=== PATIENT | female | born 1965 | race Caucasian/White ===

== ENCOUNTER 2018-09-14 07:36 | Emergency (ER) | payer BC ==
--- NOTE | 2018-09-14 08:25 | EDM.PDOC ---
ED HPI GENERAL MEDICAL PROBLEM - General Chief Complaint: Abdominal Pain Stated Complaint: ADB PAIN Time Seen by Provider: 09/14/18 08:24 Source of Information: Reports: Patient History Limitations: Reports: No Limitations - History of Present Illness INITIAL COMMENTS - FREE TEXT/NARRATIVE: 53-year-old female with onset of upper quadrant abdominal pain for approximately 9 PM last night while she was lying in bed. It is a sharp pain. It has been waxing and waning through the night. She reports nausea but no vomiting. The pain is worse with palpation. It does not radiate. The pain was an 8/10 when she arrived and is now a 4/10. She has had no fevers or chills. She 's had no diarrhea. She reports she has had this pain in the past but it always seems to go away. It does seem to be relieved at times using antacids. She has had no fevers or chills with this pain. She has never sought medical evaluation for this discomfort in the past. There is no chest pain. There is no shortness of breath. There are no other associated signs or symptoms. There are no other modifying factors. Onset: Other (Last night at 9 PM) Duration: Constant, Waxing/Waning Location: Reports: Abdomen (Upper quadrant) Quality: Reports: Burning Severity: Moderate Improves with: Reports: None Worsens with: Reports: Other (Palpation) Context: Reports: Other (As above) Associated Symptoms: Reports: Nausea/Vomiting Treatments GARMENT TAG STRINGER: Reports: Other (see below) (Zantac at 4 AM) Upper abdominal Pain Score (Numeric/FACES): 8 - Related Data Allergies Allergy/AdvReac Type Severity Reaction Status Date / Time No Known Allergies Allergy Verified 09/14/18 08:02 Home Meds: Home Meds Acetaminophen/HYDROcodone [[place] 325-5 MG] 1 tab Q6H PRN 09/14/18 [History] Certolizumab Pegol [Cimzia] 200 mg [id number] 09/14/18 [History] FLUoxetine HCl [Fluoxetine HCl] 60 mg DAILY 09/14/18 [History] Folic Acid 3 mg DAILY 09/14/18 [History] Gabapentin [Neurontin] 200 mg TID 09/14/18 [History] Gabapentin [Neurontin] 600 mg TID 09/14/18 [History] Methotrexate Sodium [Methotrexate] 15 mg WE 09/14/18 [History] Past Medical History Musculoskeletal History: Reports: RA (On cimzia and methotrexate) Psychiatric History: Reports: Anxiety, Depression - Past Surgical History Female Surgical History: Reports: Cystectomy (5 pound ovarian cyst) Musculoskeletal Surgical History: Reports: Joint Replacement (Right ankle) Social & Family History - Tobacco Use Smoking Status *Q: Current Every Day Smoker - Alcohol Use Alcohol Use History: No - Living Situation & Occupation Living situation: Reports: (Here with her ) Occupation: Retired ED ROS GENERAL - Review of Systems Review Of Systems: See Below Constitutional: Reports: No Symptoms HEENT: Reports: No Symptoms Respiratory: Reports: No Symptoms Cardiovascular: Reports: No Symptoms GI/Abdominal: Reports: Abdominal Pain, Nausea : Reports: No Symptoms Musculoskeletal: Reports: No Symptoms Skin: Reports: No Symptoms Neurological: Reports: No Symptoms Hematologic/Lymphatic: Reports: No Symptoms Immunologic: Reports: No Symptoms ED EXAM, GI/ABD - Physical Exam Exam: See Below Exam Limited By: No Limitations General Appearance: Alert, WD/WN, Moderate Distress Eyes: Bilateral: Normal Appearance (Sclera are anicteric), EOMI Ears: Normal External Exam, Hearing Grossly Normal Nose: Normal Inspection, Normal Mucosa, No Blood Throat/Mouth: Normal Inspection, Normal Voice, No Airway Compromise Head: Atraumatic, Normocephalic Neck: Normal Inspection, Supple, Non-Tender, Full Range of Motion Respiratory/Chest: No Respiratory Distress, Lungs Clear, Normal Breath Sounds, No Accessory Muscle Use Cardiovascular: Normal Peripheral Pulses, Regular Rate, Rhythm, No JVD GI/Abdominal Exam: Normal Bowel Sounds, Soft, No Distention, Tender (In right upper quadrant and epigastrium.) Back Exam: Normal Inspection Extremities: Normal Inspection, Normal Range of Motion, No Pedal Edema Neurological: Alert, Oriented, CN II-XII Intact, Normal Cognition, No Motor/ Sensory Deficits Skin Exam: Warm, Dry, Intact, Normal Color, No Rash Lymphatic: No Adenopathy EKG INTERPRETATION EKG Date: 09/14/18 Time: 08:16 Rhythm: NSR Rate (Beats/Min): 88 [place]: Normal P-Wave: Present QRS: Normal ST-T: Normal QT: Normal EKG Interpretation Comments: Normal sinus rhythm with a rate of 88. There is a normal axis. There are normal intervals, including a normal QTC. This is a normal EKG. Course - Vital Signs Last Recorded V/S: Last Vital Signs Temp 36.7 C 09/14/18 07:53 Pulse 98 09/14/18 07:53 Resp 20 09/14/18 07:53 BP 151/72 H 09/14/18 07:53 Pulse Ox 99 09/14/18 07:53 - Orders/Labs/Meds Orders: Active Orders 24 hr Category Date Time Status Abdomen Ltd [US] Stat Exams 09/14/18 08:59 Taken Morphine Med 09/14/18 08:35 Active 2 mg IVPUSH Q5M PRN Ondansetron [Zofran] Med 09/14/18 08:35 Active 4 mg IVPUSH Q10M PRN Sodium Chloride 0.9% [Saline Flush] Med 09/14/18 08:34 Active 10 ml FLUSH ASDIRECTED PRN Peripheral IV Insertion Adult [OM.PC] Routine Oth 09/14/18 08:34 Ordered Medication Orders Morphine Sulfate (Morphine) 2 mg IVPUSH Q5M PRN PRN Reason: Abdominal Pain Last Admin: 09/14/18 08:53 Dose: 2 mg Ondansetron HCl (Zofran) 4 mg IVPUSH Q10M PRN PRN Reason: Nausea/Vomiting Sodium Chloride (Saline Flush) 10 ml FLUSH ASDIRECTED PRN PRN Reason: Keep Vein Open Last Admin: 09/14/18 08:47 Dose: 10 ml Labs: Laboratory Tests 09/14/18 09/14/18 09/14/18 Range/Units 08:45 08:45 08:45 WBC 7.0 (4.5-12.0) X10-3/uL RBC 4.48 (3.23-5.20) x10(6)uL Hgb 13.6 (11.5-15.5) g/dL Hct 40.7 (30.0-51.3) % MCV 91.0 (80-96) fL MCH 30.4 (27.7-33.6) pg MCHC 33.4 (32.2-35.4) g/dL RDW 14.6 (11.5-15.5) % Plt Count 240 (125-369) X10(3)uL MPV 9.3 (7.4-10.4) fL Neut % (Auto) 74.2 (46-82) % Lymph % (Auto) 16.1 (13-37) % [place] % (Auto) 4.8 (4-12) % Eos % (Auto) 3 (1.0-5.0) % Baso % (Auto) 2 (0-2) % Neut # (Auto) 5.2 (1.6-8.3) # Lymph # (Auto) 1.1 (0.6-5.0) # [place] # (Auto) 0.3 (0.0-1.3) # Eos # (Auto) 0.2 (0.0-0.8) # Baso # (Auto) 0.1 (0.0-0.2) # Sodium 140 (135-145) mmol/L Potassium 4.6 (3.5-5.3) mmol/L Chloride 103 (100-110) mmol/L Carbon Dioxide 29 (21-32) mmol/L BUN 18 (7-18) mg/dL Creatinine 0.7 (0.55-1.02) mg/dL Est Cr Clr Drug Dosing 77.77 mL/min Estimated GFR (MDRD) > 60 (>60) BUN/Creatinine Ratio 25.7 H (9-20) Glucose 140 H (80-116) mg/dL Calcium 9.8 (8.6-10.2) mg/dL Total Bilirubin 0.3 (0.1-1.3) mg/dL AST 31 H (5-25) IU/L ALT 32 (12-36) U/L Alkaline Phosphatase 144 H (56-112) IU/L Troponin I < 0.017 L (<0.017-0.056) ng/mL Total Protein 7.4 (6.0-8.0) g/dL Albumin 3.2 L (3.5-5.2) g/dL Globulin 4.2 g/dL Albumin/Globulin Ratio 0.8 Amylase 24 L (25-115) U/L Meds: Medications Generic Name Dose Route Start Last Admin Trade Name Freq PRN Reason Stop Dose Admin Morphine Sulfate 2 mg 09/14/18 08:35 09/14/18 08:53 Morphine IVPUSH 2 mg Q5M PRN Administration Abdominal Pain Ondansetron HCl 4 mg 09/14/18 08:35 Zofran IVPUSH Q10M PRN Nausea/Vomiting Sodium Chloride 10 ml 09/14/18 08:34 09/14/18 08:47 Saline Flush FLUSH 10 ml ASDIRECTED PRN Administration Keep Vein Open Discontinued Medications Generic Name Dose Route Start Last Admin Trade Name Manojq PRN Reason Stop Dose Admin Sodium Chloride 1,000 mls @ 999 mls/hr 09/14/18 08:35 09/14/18 09:20 Normal Saline IV 09/14/18 09:35 30 mls/hr .BOLUS ONE Infusion - Radiology Interpretation Free Text/Narrative:: Right upper quadrant ultrasound shows a large stone impacted in the neck of the gallbladder with a distended gallbladder. There was no ultrasound evidence of cholecystitis other than she did have a sonographic Wheeler's sign. - Re-Assessments/Exams Free Text/Narrative Re-Assessment/Exam: 09/14/18 11:15: Patient is pain-free now. Abdominal exam is completely benign with no tenderness with palpation. Her lab tests are reassuring. The ultrasound does show evidence of cholelithiasis and I believe her symptoms are biliary colic. She will need consideration for cholecystectomy. I discussed the findings of the labs and the ultrasound with the patient and she would be in favor of following up with a surgeon to attempt to arrange this. Therefore, I called Dr. Daigle, surgeon operations controller, and he has agreed to see the patient either today or is coming Monday to evaluate the patient and arrange this. 09/14/18 11:36: The patient's insurance restricts her to [facility] and therefore she asked me to call the surgeon associated with [facility] and therefore I called and discussed the patient's case with Dr. Nye and he would see the patient the first of next week to evaluate her and discuss options for treatment of her biliary colic. Departure - Departure Time of Disposition: 11:35 Disposition: Home, Self-Care 01 Condition: Good Clinical Impression: Biliary colic Cholelithiasis Qualifiers: Cholelithiasis location: gallbladder Cholecystitis presence: without cholecystitis Biliary obstruction: without biliary obstruction Qualified Code(s) : K80.20 - Calculus of gallbladder without cholecystitis without obstruction - Discharge Information Instructions: Cholelithiasis, Biliary Colic, Adult Referrals: Davon Nicholson MD [Primary Care Provider] - Hermes Nye MD [Physician] - Forms: ED Department Discharge Additional Instructions: You have a gallstone in your gallbladder. It was blocking your gallbladder from emptying bile into your intestines and the pain you were having is related to this transient obstruction of your gallbladder. This also is the cause of the previous episodes of pain or "gallbladder attacks". With the frequency of gallbladder attacks, you will need evaluation by a surgeon and probable removal of your gallbladder. You have an appointment to see Dr. Nye at the [facility] in [place] at 3:45 PM on 09/18/2018. Back to the emergency department for fever, recurrent and unrelenting abdominal pain, unrelenting vomiting or any other concerning sign or symptom - My Orders Last 24 Hours: My Active Orders 09/14/18 08:34 Sodium Chloride 0.9% [Saline Flush] 10 ml FLUSH ASDIRECTED PRN Peripheral IV Insertion Adult [OM.PC] Routine 09/14/18 08:35 Morphine 2 mg IVPUSH Q5M PRN Ondansetron [Zofran] 4 mg IVPUSH Q10M PRN 09/14/18 08:59 Abdomen Ltd [US] Stat - Assessment/Plan Last 24 Hours: My Active Orders 09/14/18 08:34 Sodium Chloride 0.9% [Saline Flush] 10 ml FLUSH ASDIRECTED PRN Peripheral IV Insertion Adult [OM.PC] Routine 09/14/18 08:35 Morphine 2 mg IVPUSH Q5M PRN Ondansetron [Zofran] 4 mg IVPUSH Q10M PRN 09/14/18 08:59 Abdomen Ltd [US] Stat
[2018-09-14] MEDS ORDERED: Sodium Chloride 0.9% 10 ML Syringe FLUSH PRN (08:34)
[2018-09-14] MEDS ORDERED: Sodium Chloride 0.9% 1,000 ML IV ONE (08:35)
[2018-09-14] MEDS ORDERED: Morphine 2 MG/ML Syringe IVPUSH PRN (08:35)
[2018-09-14] MEDS ORDERED: Ondansetron 4 MG/2 ML SDV IVPUSH PRN (08:35)
== END 2018-09-14 11:50 | disposition home or self-care (01) ==
LOC: FB.ED 07:36
DX: K80.70 Calculus of gallbladder and bile duct without cholecystitis without obstruction (principal); F41.9 Anxiety disorder, unspecified; F32.9 Major depressive disorder, single episode, unspecified; F17.200 Nicotine dependence, unspecified, uncomplicated; Z79.899 Other long term (current) drug therapy
CPT/HCPCS: 36415; 76705; 80053; 82150; 84484; 85025; 96361; 96374; 99284; J2270; J7030

== ENCOUNTER 2018-10-01 07:56 | Day surgery (SDC) | payer BC ==
[2018-10-01] MEDS ORDERED: HYDROmorphone 2 MG/ML SDV IV ONE (07:57)
[2018-10-01] MEDS ORDERED: Lidocaine 2% 100 MG/5 ML Syringe IVPUSH ONE (07:57)
[2018-10-01] MEDS ORDERED: Glycopyrrolate 0.2 MG/ML 5 ML MDV IV ONE (07:57)
[2018-10-01] MEDS ORDERED: Neostigmine Methylsulfate 10 MG/10 ML MDV IVPUSH ONE (07:57)
[2018-10-01] MEDS ORDERED: Midazolam 1 MG/ML 2 ML SDV IV ONE (07:57)
[2018-10-01] MEDS ORDERED: Succinylcholine 200 MG/10 ML MDV IV ONE (07:57)
[2018-10-01] MEDS ORDERED: fentaNYL 100 MCG/2 ML SDV IV ONE (07:57)
[2018-10-01] MEDS ORDERED: Ondansetron 4 MG/2 ML SDV IVPUSH ONE (07:57)
[2018-10-01] MEDS ORDERED: Rocuronium 100 MG/10 ML MDV IV ONE (07:57)
[2018-10-01] MEDS ORDERED: Propofol 200 MG/20 ML SDV IV ONE (07:57)
[2018-10-01] MEDS ORDERED: Lactated Ringers 1,000 ML IV ONE (07:57)
[2018-10-01] MEDS ORDERED: Dexamethasone 4 MG/ML SDV IVPUSH ONE (07:57)
[2018-10-01] MEDS ORDERED: Lactated Ringers 1,000 ML IV SCH (08:00)
[2018-10-01] MEDS ORDERED: Scopolamine 1.5 MG Transdermal Patch TRDERM ONE (08:18)
[2018-10-01] MEDS ORDERED: Bupivacaine 0.5% 30 ML SDV ONE (09:31)
[2018-10-01] MEDS ORDERED: Lidocaine 1% with EPINEPHrine 1:100,000 20 ML MDV ONE (09:31)
[2018-10-01] MEDS ORDERED: oxyCODONE 5 MG Tab PO ONE (10:24)
--- NOTE | 2018-10-01 10:33 | PCM.OPNOTE ---
- General Post-Op/Procedure Note Date of Surgery/Procedure: 10/01/18 Operative Procedure(s): lap cholecystectomy Findings: critical view obtained. Pre Op Diagnosis: gallstones with colic Post-Op Diagnosis: Same Anesthesia Technique: General ET Tube, Local (11 ml 1 % lido with epi/0.5% buvipicaine) Primary Surgeon: Hermes Nye Anesthesia Provider: Greg Boswell ([facility] CRNAS) Pathology: gallbladder and contents. EBL in mLs: 100 Complications: None Condition: Good Free Text/Narrative:: see dictation
--- NOTE | 2018-10-01 12:29 | OR ---
DATE OF OPERATION: 10/01/2018 SURGEON: Hermes Nye MD PROCEDURE PERFORMED: Laparoscopic cholecystectomy. PREOPERATIVE DIAGNOSIS: Symptomatic cholelithiasis. POSTOPERATIVE DIAGNOSIS: Symptomatic cholelithiasis. INDICATIONS FOR PROCEDURE: This is a 53-year-old white female with history of symptomatic gallstones. She was offered and accepted a lap cholecystectomy. DESCRIPTION OF OPERATION: After an excellent general anesthetic was administered via endotracheal tube, the patient was prepped and draped in a usual sterile manner. A grand total of 11 mL of 1:1 mixture of 1% lidocaine with epinephrine 0.5% bupivacaine was used to infiltrate our port sites. We started just above the umbilicus, infiltrated full thickness of the abdominal wall down to the fascia. Some vertical midline incision was made. Blunt dissection was carried out exposing the midline fascia on either side. A 0 Vicryl was then inserted on either side of the midline, which was then elevated. The fascia was incised, and the abdominal cavity was entered. A 10.5-mm Anamaria trocar was inserted into the patient's abdomen. The patient's abdomen was then insufflated to 15 mmHg using carbon dioxide. Under direct visualization, three 5 mm ports were placed, one in the midline epigastrium and two below the right costal margin. This was done by infiltrating with local and following on with stab incisions through the skin and then inserting our trocars. Gallbladder was grasped, retracted in a cephalad fashion. The infundibulum was grasped as well. The patient was placed in reverse Trendelenburg with an airplane to the left. Blunt dissection was carried out exposing the cystic duct and the cystic artery. After obtaining a critical view, two clips were placed proximally and one distally on both of these structures, which was then transected. The gallbladder was dissected free from the gallbladder fossa using electrocautery. An additional clip had to be placed for a small bleeder superior to this. Gallbladder was removed and passed into a specimen bag and delivered out through the umbilicus. The area was irrigated. Bleeding was controlled with a combination of electrocautery as well as Surgicel. After waiting approximately 4 minutes to ensure that we had hemostasis and confirming the hemostasis, the ports were removed and the pneumoperitoneum was released. The periumbilical fascial defect was closed with a [id number] 0 Vicryl. Zarina were used to close the skin. Needle, sponge, and instrument counts were reported as correct. The patient was taken to recovery in good condition. /[id number] /MODL
== END 2018-10-01 12:47 | disposition home or self-care (01) ==
LOC: FB.SDS 07:56
PROVIDERS: ATTEND Surgery
DX: K80.10 Calculus of gallbladder with chronic cholecystitis without obstruction (principal); D64.9 Anemia, unspecified; F41.9 Anxiety disorder, unspecified; F32.9 Major depressive disorder, single episode, unspecified; M19.90 Unspecified osteoarthritis, unspecified site; F17.210 Nicotine dependence, cigarettes, uncomplicated; E66.9 Obesity, unspecified; Z68.43 Body mass index [BMI] 50.0-59.9, adult; Z79.899 Other long term (current) drug therapy; Z79.891 Long term (current) use of opiate analgesic; Z88.6 Allergy status to analgesic agent
CPT/HCPCS: 47562; A9270; J0131; J0330; J0694; J1100; J1170; J2001; J2250; J2405; J2704; J2710; J3010; J3490; J7030; J7120; 88304

== ENCOUNTER 2019-07-03 17:38 | Emergency (ER) | payer BC ==
--- NOTE | 2019-07-04 23:15 | EDM.PDOC ---
ED HPI GENERAL MEDICAL PROBLEM - General Chief Complaint: Abdominal Pain Stated Complaint: FLUID IN ABD Time Seen by Provider: 07/03/19 18:00 Source of Information: Reports: Patient History Limitations: Reports: No Limitations - History of Present Illness INITIAL COMMENTS - FREE TEXT/NARRATIVE: Patient presented to the ED because of a pleral effusion and ascites on the CT of the abdomen and pelvis. The provider was also worried that she might have SBP because of an elevated ESR and CRP although patient denies having any fever or abdominal pain. She also denies having any dyspnea. Other labs done in the the clinic are otherwise unremarkable. 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: Reports: Other (see below) Abdomen Pain Score (Numeric/FACES): 7 - Related Data Allergies Allergy/AdvReac Type Severity Reaction Status Date / Time abatacept [From Orencia] Allergy Hives Verified 07/03/19 17:54 celecoxib [From Celebrex] Allergy Hives Verified 07/03/19 17:54 Home Meds: Home Meds Acetaminophen/HYDROcodone [[place] 325-5 MG] 1 tab PO BID PRN 09/14/18 [History] Certolizumab Pegol [Cimzia] 200 mg SQ [id number] 09/14/18 [History] FLUoxetine HCl [Fluoxetine HCl] 60 mg PO DAILY 09/14/18 [History] Folic Acid 3 mg PO DAILY 09/14/18 [History] Gabapentin [Neurontin] 200 mg PO TID 09/14/18 [History] Gabapentin [Neurontin] 600 mg PO TID 09/14/18 [History] Methotrexate Sodium [Methotrexate] 15 mg PO WE 09/14/18 [History] Calcium Carbonate 1 tab PO DAILY 09/27/18 [History] Cholecalciferol (Vitamin D3) [Vitamin D3] 1 tab PO DAILY 09/27/18 [History] Cyclobenzaprine HCl 1 tab PO BID 09/27/18 [History] Naproxen 1 tab PO BID PRN 09/27/18 [History] Acetaminophen/HYDROcodone [[place] 325-5 MG] 1 - 2 tab PO Q6H PRN #20 tab [Rx] Celecoxib [CeleBREX] 200 mg PO BID #10 cap 10/01/18 [Rx] Docusate Sodium [Colace] 100 mg PO BID #20 capsule 10/01/18 [Rx] Past Medical History HEENT History: Reports: Impaired Vision Gastrointestinal History: Reports: GERD, Other (See Below) Other Gastrointestinal History: ascites Genitourinary History: Reports: None DIRECTOR FINANCIAL PLANNING History: Reports: Polycystic Ovaries, , Other (See Below) Other DIRECTOR FINANCIAL PLANNING 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 Musculoskeletal History: Reports: Arthritis, RA Neurological History: Reports: Migraines Psychiatric History: Reports: Anxiety, Depression, Panic Attack Endocrine/Metabolic History: Reports: Obesity/BMI 30+ Hematologic History: Reports: Anemia - Infectious Disease History Infectious Disease History: Reports: Chicken Pox - Past Surgical History GI Surgical History: Reports: Cholecystectomy Female Surgical History: Reports: Cystectomy Other Female Surgeries/Procedures: L ovary removed Musculoskeletal Surgical History: Reports: Joint Replacement, Other (See Below) Other Musculoskeletal Surgeries/Procedures:: L ankle replacement, cyst removed from L ankle, L gt toe surgery Social & Family History - Family History Family Medical History: Noncontributory - Tobacco Use Smoking Status *Q: Current Every Day Smoker Years of Tobacco use: 40 Packs/Tins Daily: 0.6 - Caffeine Use Caffeine Use: Reports: Soda - Recreational Drug Use Recreational Drug Use: No - Living Situation & Occupation Living situation: Reports: (Here with her ) Occupation: Retired ED ROS GENERAL - Review of Systems Review Of Systems: See Below Constitutional: Reports: No Symptoms HEENT: Reports: No Symptoms Respiratory: Reports: No Symptoms. Denies: Shortness of Breath Cardiovascular: Reports: No Symptoms Endocrine: Reports: No Symptoms GI/Abdominal: Denies: Abdominal Pain, Nausea, Vomiting : Reports: No Symptoms Musculoskeletal: Reports: No Symptoms Skin: Reports: No Symptoms Neurological: Reports: No Symptoms ED EXAM, GI/ABD - Physical Exam Exam: See Below Exam Limited By: No Limitations General Appearance: Alert, No Apparent Distress Ears: Normal External Exam, Normal Canal Nose: Normal Inspection, Normal Mucosa, No Blood Throat/Mouth: Normal Inspection, Normal Lips, Normal Teeth Head: Atraumatic, Normocephalic Neck: Normal Inspection, Supple, Non-Tender, Full Range of Motion Respiratory/Chest: No Respiratory Distress, Decreased Breath Sounds Cardiovascular: Normal Peripheral Pulses, Regular Rate, Rhythm, No Edema GI/Abdominal Exam: Normal Bowel Sounds, Soft, Non-Tender, Other (positive fluid wave) Back Exam: Normal Inspection, Full Range of Motion Extremities: Normal Inspection, Normal Range of Motion Neurological: Alert, CN II-XII Intact, Normal Cognition Course - Vital Signs Text/Narrative:: Labs/CT abd/pelvis was reviewed and discussed with the patient and verbalized full understanding I discussed with her that she can discussed with her primary provider whether to do paracentecis or not and to evaluate the cause of her pleural effusion and ascites. Last Recorded V/S: Last Vital Signs Temp 37.2 C 07/03/19 17:45 Pulse 108 H 07/03/19 19:30 Resp 22 H 07/03/19 19:30 BP 132/100 H 07/03/19 19:30 Pulse Ox 96 07/03/19 19:30 Departure - Departure Time of Disposition: 19:40 Disposition: Home, Self-Care 01 Condition: Good Clinical Impression: Ascites, Pleural effusion - Discharge Information Instructions: Ascites, Pleural Effusion Referrals: Davon Nicholson MD [Primary Care Provider] - Forms: ED Department Discharge Additional Instructions: follow up with your doctor to discuss option treatment for your ascites and pleural effusion return to the ED if you develop any fever and abdomial pain Sepsis Event Note - Evaluation Sepsis Screening Result: No Definite Risk
== END 2019-07-03 19:40 | disposition home or self-care (01) ==
LOC: FB.ED 17:38
DX: R18.8 Other ascites (principal); J90 Pleural effusion, not elsewhere classified; M06.9 Rheumatoid arthritis, unspecified; M19.90 Unspecified osteoarthritis, unspecified site; E66.9 Obesity, unspecified; F17.210 Nicotine dependence, cigarettes, uncomplicated; Z90.49 Acquired absence of other specified parts of digestive tract; Z88.8 Allergy status to other drugs, medicaments and biological substances
CPT/HCPCS: 99283

== ENCOUNTER 2020-01-02 09:44 | Emergency (ER) | payer BC ==
[2020-01-02] MEDS ORDERED: Furosemide 20 MG/2 ML VIAL IVPUSH ONE ×2 (11:02→13:56)
--- NOTE | 2020-01-02 11:07 | EDM.PDOC ---
ED HPI GENERAL MEDICAL PROBLEM - General Chief Complaint: Respiratory Problem Stated Complaint: SOB Time Seen by Provider: 01/02/20 09:50 Source of Information: Reports: Patient History Limitations: Reports: No Limitations - History of Present Illness INITIAL COMMENTS - FREE TEXT/NARRATIVE: Patient presented to the ED because of dyspnea which started 1 week ago and is progressively getting worse. Denies any chest pain or palpitations.There is no N/V/D. Patient had a low grade fever and dry cough yesterday. She has a history of grade 3 ovarian and uterine cancer and is undergoing chemotherapy, the last oe was 3 weeks ago. Upper chest Pain Score (Numeric/FACES): 2 - Related Data Allergies Allergy/AdvReac Type Severity Reaction Status Date / Time abatacept [From Orencia] Allergy Hives Verified 01/02/20 10:01 celecoxib [From Celebrex] Allergy Hives Verified 01/02/20 10:01 Home Meds: Home Meds Acetaminophen/HYDROcodone [[place] 325-5 MG] 1 tab PO BID PRN 09/14/18 [History] FLUoxetine HCl [Fluoxetine HCl] 60 mg PO DAILY 09/14/18 [History] Gabapentin [Neurontin] 200 mg PO TID 09/14/18 [History] Gabapentin [Neurontin] 600 mg PO TID 09/14/18 [History] Cyclobenzaprine HCl 1 tab PO BID PRN 09/27/18 [History] Naproxen 1 tab PO BID PRN 09/27/18 [History] Acetaminophen/HYDROcodone [[place] 325-5 MG] 1 tab PO BID 01/02/20 [History] Docusate Sodium [Colace] 100 mg PO DAILY PRN 01/02/20 [History] Mupirocin Oint [Bactroban Oint] 22 gm TP TID 01/02/20 [History] Ondansetron [Ondansetron ODT] 8 mg Q8H PRN 01/02/20 [History] Sulfamethoxazole/Trimethoprim [Bactrim Ds Tablet] 1 tab BID 01/02/20 [History] predniSONE [Prednisone] 10 mg PO DAILY PRN 01/02/20 [History] Past Medical History HEENT History: Reports: Impaired Vision Gastrointestinal History: Reports: GERD, Other (See Below) Other Gastrointestinal History: ascites Genitourinary History: Reports: None 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 , hx ovarian & uterine CA, Musculoskeletal History: Reports: Arthritis, RA Neurological History: Reports: Migraines Psychiatric History: Reports: Anxiety, Depression, Panic Attack Endocrine/Metabolic History: Reports: Obesity/BMI 30+ Hematologic History: Reports: Anemia, Blood Transfusion(s) Oncologic (Cancer) History: Reports: Ovarian, Uterine Dermatologic History: Reports: Other (See Below) Other Dermatologic History: sore to abdomen - Infectious Disease History Infectious Disease History: Reports: Chicken Pox - Past Surgical History HEENT Surgical History: Reports: None GI Surgical History: Reports: Appendectomy, Cholecystectomy Female Surgical History: Reports: Cystectomy, Hysterectomy, Salpingo- Oophorectomy Other Female Surgeries/Procedures: L ovary removed, R ovary 10/22/19 Musculoskeletal Surgical History: Reports: Joint Replacement, Other (See Below) Other Musculoskeletal Surgeries/Procedures:: L ankle replacement, cyst removed from L ankle, L gt toe surgery Oncologic Surgical History: Reports: Other (See Below) Other Oncologic Surgeries/Procedures: total hyst Social & Family History - Family History Family Medical History: Noncontributory - Tobacco Use Smoking Status *Q: Current Every Day Smoker Years of Tobacco use: 35 Packs/Tins Daily: 0.5 - Caffeine Use Caffeine Use: Reports: Soda - Recreational Drug Use Recreational Drug Use: No - Living Situation & Occupation Living situation: Reports: (Here with her ) Occupation: Retired ED ROS GENERAL - Review of Systems Review Of Systems: See Below Constitutional: Reports: Fever, Fatigue HEENT: Reports: No Symptoms Respiratory: Reports: Shortness of Breath, Cough Cardiovascular: Reports: No Symptoms Endocrine: Reports: No Symptoms GI/Abdominal: Reports: No Symptoms : Reports: No Symptoms Musculoskeletal: Reports: No Symptoms Skin: Reports: No Symptoms Neurological: Reports: No Symptoms Psychiatric: Reports: No Symptoms Hematologic/Lymphatic: Reports: No Symptoms Immunologic: Reports: No Symptoms ED EXAM, GENERAL - Physical Exam Exam: See Below Exam Limited By: No Limitations General Appearance: Alert, No Apparent Distress Eye Exam: Bilateral Eye: PERRL Ears: Normal External Exam, Normal Canal Nose: Normal Inspection, Normal Mucosa Throat/Mouth: Normal Inspection, Normal Lips, Normal Teeth Head: Atraumatic, Normocephalic Neck: Normal Inspection, Supple, Non-Tender Respiratory/Chest: No Respiratory Distress, Decreased Breath Sounds Cardiovascular: Normal Peripheral Pulses, Regular Rate, Rhythm, No Edema, No JVD, No Murmur, No Rub GI/Abdominal: Normal Bowel Sounds, Soft, Non-Tender Back Exam: Normal Inspection, Full Range of Motion Extremities: Normal Inspection, Normal Range of Motion Neurological: Alert, Oriented, CN II-XII Intact Course - Vital Signs Text/Narrative:: Labs/EKG/CXR was discussed with chritsiana Lasix 40 mg IV x1 Rocephin 1 gm IV Transfuse 2 U PRBC Last Recorded V/S: Last Vital Signs Temp 36.8 C 01/02/20 09:44 Pulse 122 H 01/02/20 09:44 Resp 16 01/02/20 13:31 BP 125/62 01/02/20 13:31 Pulse Ox 97 01/02/20 13:31 - Orders/Labs/Meds Orders: Active Orders 24 hr Category Date Time Status EKG Documentation Completion [RC] ASDIRECTED Care 01/02/20 10:22 Active Insert Daniels Catheter [Insert Urinary Catheter] [OM.PC] Care 01/02/20 13:30 Ordered Q24H Urinary Catheter Assessment [RC] QSHIFT Care 01/02/20 13:28 Active Ang Chest [CT] Stat Exams 01/02/20 11:49 Taken CULTURE BLOOD [BC] Urgent Lab 01/02/20 11:15 Received CULTURE BLOOD [BC] Urgent Lab 01/02/20 11:20 Results CULTURE URINE [RM] Stat Lab 01/02/20 10:57 Received TYPE AND SCREEN [BBK] Stat Lab 01/02/20 13:46 Ordered Sodium Chloride 0.9% [Normal Saline] 250 ml Med 01/02/20 14:00 Active IV ASDIRECTED Sodium Chloride 0.9% [Saline Flush] Med 01/02/20 10:21 Active 10 ml FLUSH ASDIRECTED PRN cefTRIAXone [Rocephin] 1 gm Med 01/02/20 13:44 Active Sodium Chloride 0.9% [Normal Saline] 50 ml IV ONETIME Blood Culture x2 Reflex Set [OM.PC] Urgent Oth 01/02/20 10:41 Ordered Saline Lock Insert [OM.PC] Routine Oth 01/02/20 10:21 Ordered Transfuse RBC [Transfuse Red Blood Cells] [COMM] Stat Oth 01/02/20 13:48 Ordered EKG 12 Lead [EK] Routine Ther 01/02/20 10:21 Ordered Medication Orders Ceftriaxone Sodium 1 gm/ (Sodium Chloride) 50 mls @ 200 mls/hr IV ONETIME ONE Stop: 01/02/20 13:58 Sodium Chloride (Normal Saline) 250 mls @ 100 mls/hr IV ASDIRECTED KIARA Sodium Chloride (Saline Flush) 10 ml FLUSH ASDIRECTED PRN PRN Reason: Keep Vein Open Last Admin: 01/02/20 11:13 Dose: 10 ml Documented by: JOVAN Labs: Laboratory Tests 01/02/20 01/02/20 01/02/20 Range/Units 09:50 09:50 09:50 WBC 6.4 (4.5-12.0) X10-3/uL RBC 1.67 L (3.23-5.20) x10(6)uL Hgb 5.3 L* D (11.5-15.5) g/dL Hct 16.4 L* D (30.0-51.3) % MCV 98.7 H (80-96) fL MCH 31.8 (27.7-33.6) pg MCHC 32.2 (32.2-35.4) g/dL RDW 18.8 H (11.5-15.5) % Plt Count 65 L (125-369) X10(3)uL MPV 10.0 (7.4-10.4) fL Neut % (Auto) 76.9 (46-82) % Lymph % (Auto) 18.3 (13-37) % Alpine % (Auto) 4.7 (4-12) % Eos % (Auto) 0 L (1.0-5.0) % Baso % (Auto) 0 (0-2) % Neut # (Auto) 4.9 (1.6-8.3) # Lymph # (Auto) 1.2 (0.6-5.0) # Alpine # (Auto) 0.3 (0.0-1.3) # Eos # (Auto) 0.0 (0.0-0.8) # Baso # (Auto) 0.0 (0.0-0.2) # PT (9.0-11.1) sec INR (1.00-1.24) APTT (24.4-33.2) SECONDS D-Dimer, Quantitative (0.0-0.59) mg/LFEU Sodium 140 (135-145) mmol/L Potassium 3.4 L D (3.5-5.3) mmol/L Chloride 102 (100-110) mmol/L Carbon Dioxide 25 (21-32) mmol/L BUN 25 H (7-18) mg/dL Creatinine 1.3 H (0.55-1.02) mg/dL Est Cr Clr Drug Dosing 41.40 mL/min Estimated GFR (MDRD) 43 L (>60) BUN/Creatinine Ratio 19.2 (9-20) Glucose 138 H (80-116) mg/dL Lactic Acid (0.4-2.0) mmol/L Calcium 8.3 L (8.6-10.2) mg/dL Total Bilirubin 0.3 (0.1-1.3) mg/dL AST 22 D (5-25) IU/L ALT 16 D (12-36) U/L Alkaline Phosphatase 137 H (56-112) IU/L Troponin I 56.2 (4.0-60.3) pg/mL NT-Pro-B Natriuret Pep 4930 H* (<=125) pg/mL Total Protein 7.1 (6.0-8.0) g/dL Albumin 2.4 L (3.5-5.2) g/dL Globulin 4.7 g/dL Albumin/Globulin Ratio 0.5 Urine Color (YELLOW) Urine Appearance (CLEAR) Urine pH (5.0-6.5) Ur Specific [place] (1.010-1.025) Urine Protein (NEGATIVE) mg/dL Urine Glucose (UA) (NORMAL) mg/dL Urine Ketones (NEGATIVE) mg/dL Urine Occult Blood (NEGATIVE) Urine Nitrite (NEGATIVE) Urine Bilirubin (NEGATIVE) Urine Urobilinogen (NEGATIVE) mg/dL Ur Leukocyte Esterase (NEGATIVE) Urine RBC (0-5) Urine WBC (0-5) Ur Squamous Epith Cells (NS,R,O) Urine Bacteria (NS) SARS Virus RNA (PCR) (NEGATIVE) 01/02/20 01/02/20 01/02/20 Range/Units 09:50 09:50 10:58 WBC (4.5-12.0) X10-3/uL RBC (3.23-5.20) x10(6)uL Hgb (11.5-15.5) g/dL Hct (30.0-51.3) % MCV (80-96) fL MCH (27.7-33.6) pg MCHC (32.2-35.4) g/dL RDW (11.5-15.5) % Plt Count (125-369) X10(3)uL MPV (7.4-10.4) fL Neut % (Auto) (46-82) % Lymph % (Auto) (13-37) % Alpine % (Auto) (4-12) % Eos % (Auto) (1.0-5.0) % Baso % (Auto) (0-2) % Neut # (Auto) (1.6-8.3) # Lymph # (Auto) (0.6-5.0) # Alpine # (Auto) (0.0-1.3) # Eos # (Auto) (0.0-0.8) # Baso # (Auto) (0.0-0.2) # PT 11.4 H (9.0-11.1) sec INR 1.06 (1.00-1.24) APTT 23.0 L (24.4-33.2) SECONDS D-Dimer, Quantitative 6.55 H (0.0-0.59) mg/LFEU Sodium (135-145) mmol/L Potassium (3.5-5.3) mmol/L Chloride (100-110) mmol/L Carbon Dioxide (21-32) mmol/L BUN (7-18) mg/dL Creatinine (0.55-1.02) mg/dL Est Cr Clr Drug Dosing mL/min Estimated GFR (MDRD) (>60) BUN/Creatinine Ratio (9-20) Glucose (80-116) mg/dL Lactic Acid 1.8 (0.4-2.0) mmol/L Calcium (8.6-10.2) mg/dL Total Bilirubin (0.1-1.3) mg/dL AST (5-25) IU/L ALT (12-36) U/L Alkaline Phosphatase (56-112) IU/L Troponin I (4.0-60.3) pg/mL NT-Pro-B Natriuret Pep (<=125) pg/mL Total Protein (6.0-8.0) g/dL Albumin (3.5-5.2) g/dL Globulin g/dL Albumin/Globulin Ratio Urine Color Yellow (YELLOW) Urine Appearance Turbid (CLEAR) Urine pH 5.0 (5.0-6.5) Ur Specific [place] 1.020 (1.010-1.025) Urine Protein Negative (NEGATIVE) mg/dL Urine Glucose (UA) Normal (NORMAL) mg/dL Urine Ketones 15 H (NEGATIVE) mg/dL Urine Occult Blood Moderate H (NEGATIVE) Urine Nitrite Negative (NEGATIVE) Urine Bilirubin Negative (NEGATIVE) Urine Urobilinogen 1 H (NEGATIVE) mg/dL Ur Leukocyte Esterase Moderate H (NEGATIVE) Urine RBC 10-20 H (0-5) Urine WBC 10-20 H (0-5) Ur Squamous Epith Cells Moderate H (NS,R,O) Urine Bacteria Moderate H (NS) SARS Virus RNA (PCR) (NEGATIVE) 01/02/20 Range/Units 11:45 WBC (4.5-12.0) X10-3/uL RBC (3.23-5.20) x10(6)uL Hgb (11.5-15.5) g/dL Hct (30.0-51.3) % MCV (80-96) fL MCH (27.7-33.6) pg MCHC (32.2-35.4) g/dL RDW (11.5-15.5) % Plt Count (125-369) X10(3)uL MPV (7.4-10.4) fL Neut % (Auto) (46-82) % Lymph % (Auto) (13-37) % Alpine % (Auto) (4-12) % Eos % (Auto) (1.0-5.0) % Baso % (Auto) (0-2) % Neut # (Auto) (1.6-8.3) # Lymph # (Auto) (0.6-5.0) # Alpine # (Auto) (0.0-1.3) # Eos # (Auto) (0.0-0.8) # Baso # (Auto) (0.0-0.2) # PT (9.0-11.1) sec INR (1.00-1.24) APTT (24.4-33.2) SECONDS D-Dimer, Quantitative (0.0-0.59) mg/LFEU Sodium (135-145) mmol/L Potassium (3.5-5.3) mmol/L Chloride (100-110) mmol/L Carbon Dioxide (21-32) mmol/L BUN (7-18) mg/dL Creatinine (0.55-1.02) mg/dL Est Cr Clr Drug Dosing mL/min Estimated GFR (MDRD) (>60) BUN/Creatinine Ratio (9-20) Glucose (80-116) mg/dL Lactic Acid (0.4-2.0) mmol/L Calcium (8.6-10.2) mg/dL Total Bilirubin (0.1-1.3) mg/dL AST (5-25) IU/L ALT (12-36) U/L Alkaline Phosphatase (56-112) IU/L Troponin I (4.0-60.3) pg/mL NT-Pro-B Natriuret Pep (<=125) pg/mL Total Protein (6.0-8.0) g/dL Albumin (3.5-5.2) g/dL Globulin g/dL Albumin/Globulin Ratio Urine Color (YELLOW) Urine Appearance (CLEAR) Urine pH (5.0-6.5) Ur Specific [place] (1.010-1.025) Urine Protein (NEGATIVE) mg/dL Urine Glucose (UA) (NORMAL) mg/dL Urine Ketones (NEGATIVE) mg/dL Urine Occult Blood (NEGATIVE) Urine Nitrite (NEGATIVE) Urine Bilirubin (NEGATIVE) Urine Urobilinogen (NEGATIVE) mg/dL Ur Leukocyte Esterase (NEGATIVE) Urine RBC (0-5) Urine WBC (0-5) Ur Squamous Epith Cells (NS,R,O) Urine Bacteria (NS) SARS Virus RNA (PCR) Negative (NEGATIVE) Meds: Medications Generic Name Dose Route Start Last Admin Trade Name Freq PRN Reason Stop Dose Admin Ceftriaxone Sodium 1 gm/ 50 mls @ 200 mls/hr 01/02/20 13:44 Sodium Chloride IV 01/02/20 13:58 ONETIME ONE Sodium Chloride 250 mls @ 100 mls/hr 01/02/20 14:00 Normal Saline IV ASDIRECTED KIARA Sodium Chloride 10 ml 01/02/20 10:21 01/02/20 11:13 Saline Flush FLUSH 10 ml ASDIRECTED PRN Administration Keep Vein Open Discontinued Medications Generic Name Dose Route Start Last Admin Trade Name Adrien PRN Reason Stop Dose Admin Furosemide 40 mg 01/02/20 11:15 01/02/20 11:13 Lasix IVPUSH 01/02/20 11:16 Not Given ONETIME ONE Furosemide 40 mg 01/02/20 11:12 01/02/20 11:13 Lasix IVPUSH 01/02/20 11:13 40 mg NOW ONE Administration Iopamidol 100 ml 01/02/20 11:52 01/02/20 13:05 Isovue-370 (76%) IV 01/02/20 11:53 85 ml . DIRECTED ONE Administration Departure - Departure Time of Disposition: 12:30 Disposition: DC/Tfer to Acute Hospital 02 Condition: Good Clinical Impression: CHF (congestive heart failure), Ovarian cancer, Uterine cancer, Anemia, Thrombocytopenia, Pneumonia - Discharge Information Referrals: Davon Nicholson MD [Primary Care Provider] - Forms: ED Department Discharge Sepsis Event Note (ED) - Evaluation Sepsis Screening Result: Possible Sepsis Risk - Focused Exam Vital Signs: Vital Signs Temp Pulse Resp BP Pulse Ox 01/02/20 13:31 16 125/62 97 01/02/20 09:44 36.8 C 122 H 28 H 135/69 87 L - My Orders Last 24 Hours: My Active Orders 01/02/20 10:21 Sodium Chloride 0.9% [Saline Flush] 10 ml FLUSH ASDIRECTED PRN Saline Lock Insert [OM.PC] Routine EKG 12 Lead [EK] Routine 01/02/20 10:22 EKG Documentation Completion [RC] ASDIRECTED 01/02/20 10:41 Blood Culture x2 Reflex Set [OM.PC] Urgent 01/02/20 10:57 CULTURE URINE [RM] Stat 01/02/20 11:15 CULTURE BLOOD [BC] Urgent 01/02/20 11:20 CULTURE BLOOD [BC] Urgent 01/02/20 11:49 Ang Chest [CT] Stat 01/02/20 13:28 Urinary Catheter Assessment [RC] QSHIFT 01/02/20 13:30 Insert Daniels Catheter [Insert Urinary Catheter] [OM.PC] Q24H 01/02/20 13:44 cefTRIAXone [Rocephin] 1 gm Sodium Chloride 0.9% [Normal Saline] 50 ml IV ONETIME 01/02/20 13:46 TYPE AND SCREEN [BBK] Stat 01/02/20 13:48 Transfuse RBC [Transfuse Red Blood Cells] [COMM] Stat 01/02/20 14:00 Sodium Chloride 0.9% [Normal Saline] 250 ml IV ASDIRECTED - Assessment/Plan Last 24 Hours: My Active Orders 01/02/20 10:21 Sodium Chloride 0.9% [Saline Flush] 10 ml FLUSH ASDIRECTED PRN Saline Lock Insert [OM.PC] Routine EKG 12 Lead [EK] Routine 01/02/20 10:22 EKG Documentation Completion [RC] ASDIRECTED 01/02/20 10:41 Blood Culture x2 Reflex Set [OM.PC] Urgent 01/02/20 10:57 CULTURE URINE [RM] Stat 01/02/20 11:15 CULTURE BLOOD [BC] Urgent 01/02/20 11:20 CULTURE BLOOD [BC] Urgent 01/02/20 11:49 Ang Chest [CT] Stat 01/02/20 13:28 Urinary Catheter Assessment [RC] QSHIFT 01/02/20 13:30 Insert Daniels Catheter [Insert Urinary Catheter] [OM.PC] Q24H 01/02/20 13:44 cefTRIAXone [Rocephin] 1 gm Sodium Chloride 0.9% [Normal Saline] 50 ml IV ONETIME 01/02/20 13:46 TYPE AND SCREEN [BBK] Stat 01/02/20 13:48 Transfuse RBC [Transfuse Red Blood Cells] [COMM] Stat 01/02/20 14:00 Sodium Chloride 0.9% [Normal Saline] 250 ml IV ASDIRECTED
[2020-01-02] MEDS ORDERED: Furosemide 40 MG/4 ML VIAL IVPUSH ONE ×2 (11:12→11:15)
[2020-01-02] MEDS: Sodium Chloride 0.9% 10 ML Syringe FLUSH PRN ×2 (11:13→13:55)
--- NOTE | 2020-01-02 11:15 | CR ---
INDICATION: Dyspnea, history of ovarian CA, last chemotherapy 3 weeks prior, in remission. CHEST, ONE VIEW: AP portable upright view of the chest was obtained 01/02/20 and compared with a CT of the chest dated 09/24/19 at which time no active infiltrate or effusion was suggested. At this time, there is extensive infiltrate in the right lung field sparing to some extent the apex but noted throughout the remainder of the chest and most severely consolidated in the lower lung field into the lung base. The appearance could be on the basis of aspiration pneumonia if the patient's right side was dependent. The left lung and both pleural spaces appear to be fairly clear. The heart is enlarged. No definite evidence of CHF is seen. IMPRESSION: New finding of extensive infiltration in the right lung. Pneumonia is felt to be most likely, possibly due to aspiration with the right side dependent at the time of aspiration. Other possibilities would include metastatic disease in this patient with history of ovarian CA - correlate clinically. MTDD
[2020-01-02] MEDS ORDERED: Iopamidol 755 Mg/ML 100 ML Bottle IV ONE (11:52)
[2020-01-02] MEDS ORDERED: cefTRIAXone 1 GM in Sodium Chloride 0.9% 50 ML IV ONE (13:44)
[2020-01-02] MEDS ORDERED: Sodium Chloride 0.9% 250 ML IV SCH (14:00)
--- NOTE | 2020-01-02 14:12 | CT ---
INDICATION: Elevated D-dimer 6.55, question PE, metastatic CA. COMPUTERIZED TOMOGRAPHY ANGIOGRAPHY OF THE CHEST WITH CONTRAST: Spiral 1.25 mm axial sections were obtained through the chest with 85 mL Isovue 370 at 3 cc/sec, with sagittal and coronal reconstructions, 01/02/20 and compared with 07/12/19. Total exam DLP was 998.87 mGy-cm. No definite mediastinal mass was identified. Mediastinal lymphadenopathy is present and appears slightly more prominent with 1 pretracheal node just above the kobi measuring approximately 18 mm compared with 15 mm on the previous study. The heart appears enlarged compared with the previous study and there is a definite pericardial effusion now seen suggesting pericarditis. In the upper abdomen included on the study, there has been resolution of the previously noted ascites. 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 Evidence of cholecystectomy is again noted. The pulmonary arteries were not ideally opacified. While the pulmonary arteries were not well seen, no definite pulmonary embolus was identified. Extensive patchy and, in some areas, somewhat nodularly consolidating infiltrates are noted throughout the right upper and lower lobes as well as the middle lobe. Relatively minimal similar findings are noted in the apical left lung and slightly more inferiorly in the left upper lobe and minimally in the apical segment of the left lower lobe. Findings may represent pneumonia, possibly aspiration type. Malignancy is felt to be less likely with this appearance. IMPRESSION: 1. No definite evidence of PE; however, opacification of the pulmonary arteries was less than ideal. 2. Extensive infiltration scattered throughout the lobes of the right lung and, to a much lesser extent, in the left upper lobe and apical segment of the left lower lobe, etiology indeterminate. 3. Cardiomegaly - progressive increased heart size - with pericardial effusion - possible pericarditis. 4. Resolution of previous pleural effusion on the left and abdominal ascites. 5. Post cholecystectomy. 6. 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 Report was called to Dr. Escobedo at 13:38 hours. [facility]
== END 2020-01-02 16:14 ==
LOC: FB.ED 09:44
DX: I50.9 Heart failure, unspecified (principal); D69.6 Thrombocytopenia, unspecified; J18.9 Pneumonia, unspecified organism; C56.9 Malignant neoplasm of unspecified ovary; C55 Malignant neoplasm of uterus, part unspecified; F41.9 Anxiety disorder, unspecified; F32.9 Major depressive disorder, single episode, unspecified; F17.210 Nicotine dependence, cigarettes, uncomplicated; E66.9 Obesity, unspecified; Z68.41 Body mass index [BMI] 40.0-44.9, adult; Z88.8 Allergy status to other drugs, medicaments and biological substances; Z79.899 Other long term (current) drug therapy; Z20.828 Contact with and (suspected) exposure to other viral communicable diseases
CPT/HCPCS: 36415; 36430; 51702; 71045; 71275; 80053; 81001; 83605; 83880; 84484; 85025; 85379; 85610; 85730; 86850; 86900; 86901; 86920; 86922; 87040; 87086; 87635; 93005; 96361; 96365; 96375; 99285; J0696; J1940; J7050; P9016; Q9967; U0002

== ENCOUNTER 2020-01-04 13:39 | Inpatient (IN) | payer BC ==
[2020-01-04] MEDS ORDERED: Sodium Chloride 0.9% 10 ML Syringe FLUSH PRN (13:57)
[2020-01-04] MEDS ORDERED: Ondansetron 4 MG/2 ML SDV IVPUSH PRN (13:58)
[2020-01-04] MEDS ORDERED: cefTRIAXone 1 GM Vial IVPUSH SCH (14:00)
[2020-01-04] MEDS: Sodium Chloride 0.9% 1,000 ML IV SCH ×2 (14:07→22:52)
[2020-01-04] MEDS ORDERED: Metoclopramide 10 MG/2 ML SDV IVPUSH ONE (14:08)
--- NOTE | 2020-01-04 15:50 | EDM.PDOC ---
ED HPI GENERAL MEDICAL PROBLEM - General Chief Complaint: Gastrointestinal Problem Time Seen by Provider: 01/04/20 13:50 Source of Information: Reports: Patient History Limitations: Reports: No Limitations - History of Present Illness INITIAL COMMENTS - FREE TEXT/NARRATIVE: Patient presented to the ED because of persistent N/V after being discharged from [facility] due to pneumonia, UTI, pleural effusion and a questionable CHF. She is suppose to be taking Augmentin but was not able to take it because of her N/V. She denies any abdominal pain, fever, cough & cold symptoms. Ever since she was given lasix IV 2 days ago and after 3 U PRBC was transfused her breathing was better. - Related Data Allergies Allergy/AdvReac Type Severity Reaction Status Date / Time abatacept [From Orencia] Allergy Hives Verified 01/02/20 10:01 celecoxib [From Celebrex] Allergy Hives Verified 01/02/20 10:01 Home Meds: Home Meds Acetaminophen/HYDROcodone [[place] 325-5 MG] 1 tab PO BID PRN 09/14/18 [History] FLUoxetine HCl [Fluoxetine HCl] 60 mg PO DAILY 09/14/18 [History] Gabapentin [Neurontin] 200 mg PO TID 09/14/18 [History] Gabapentin [Neurontin] 600 mg PO TID 09/14/18 [History] Cyclobenzaprine HCl 1 tab PO BID PRN 09/27/18 [History] Naproxen 1 tab PO BID PRN 09/27/18 [History] Acetaminophen/HYDROcodone [[place] 325-5 MG] 1 tab PO BID 01/02/20 [History] Docusate Sodium [Colace] 100 mg PO DAILY PRN 01/02/20 [History] Mupirocin Oint [Bactroban Oint] 22 gm TP TID 01/02/20 [History] Ondansetron [Ondansetron ODT] 8 mg Q8H PRN 01/02/20 [History] Sulfamethoxazole/Trimethoprim [Bactrim Ds Tablet] 1 tab BID 01/02/20 [History] predniSONE [Prednisone] 10 mg PO DAILY PRN 01/02/20 [History] Past Medical History HEENT History: Reports: Impaired Vision Gastrointestinal History: Reports: GERD, Other (See Below) Other Gastrointestinal History: ascites Genitourinary History: Reports: None [employer]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 , hx ovarian & uterine CA, Musculoskeletal History: Reports: Arthritis, RA Neurological History: Reports: Migraines Psychiatric History: Reports: Anxiety, Depression, Panic Attack Endocrine/Metabolic History: Reports: Obesity/BMI 30+ Hematologic History: Reports: Anemia, Blood Transfusion(s) Oncologic (Cancer) History: Reports: Ovarian, Uterine Dermatologic History: Reports: Other (See Below) Other Dermatologic History: sore to abdomen - Infectious Disease History Infectious Disease History: Reports: Chicken Pox - Past Surgical History HEENT Surgical History: Reports: None GI Surgical History: Reports: Appendectomy, Cholecystectomy Female Surgical History: Reports: Cystectomy, Hysterectomy, Salpingo- Oophorectomy Other Female Surgeries/Procedures: L ovary removed, R ovary 10/22/19 Musculoskeletal Surgical History: Reports: Joint Replacement, Other (See Below) Other Musculoskeletal Surgeries/Procedures:: L ankle replacement, cyst removed from L ankle, L gt toe surgery Oncologic Surgical History: Reports: Other (See Below) Other Oncologic Surgeries/Procedures: total hyst Social & Family History - Family History Family Medical History: Noncontributory - Caffeine Use Caffeine Use: Reports: Soda - Living Situation & Occupation Living situation: Reports: (Here with her ) Occupation: Retired ED ROS GENERAL - Review of Systems Review Of Systems: See Below Constitutional: Reports: No Symptoms HEENT: Reports: No Symptoms Respiratory: Reports: No Symptoms Cardiovascular: Reports: No Symptoms Endocrine: Reports: No Symptoms GI/Abdominal: Reports: Nausea, Vomiting : Reports: No Symptoms Musculoskeletal: Reports: No Symptoms Skin: Reports: No Symptoms Neurological: Reports: No Symptoms Psychiatric: Reports: No Symptoms ED EXAM, GENERAL - Physical Exam Exam: See Below Exam Limited By: No Limitations General Appearance: Alert, No Apparent Distress Eye Exam: Bilateral Eye: PERRL Ears: Normal External Exam Nose: Normal Inspection, Normal Mucosa, No Blood Throat/Mouth: Normal Inspection, Normal Lips, Normal Teeth Head: Atraumatic, Normocephalic Neck: Normal Inspection, Supple, Non-Tender, Full Range of Motion Respiratory/Chest: No Respiratory Distress, Lungs Clear, Normal Breath Sounds Cardiovascular: Normal Peripheral Pulses, Regular Rate, Rhythm, No Edema, No Gallop GI/Abdominal: Normal Bowel Sounds, Soft, Non-Tender, No Organomegaly Back Exam: Normal Inspection, Full Range of Motion Extremities: Normal Inspection, Normal Range of Motion, Non-Tender Neurological: Alert, Oriented, CN II-XII Intact, Normal Cognition, Normal Gait Psychiatric: Normal Affect, Normal Mood Skin Exam: Warm, Dry, Intact Course - Vital Signs Text/Narrative:: Labs, CXR was discussed with patient NS @ 125ml/hr Zofran 4 mg IV x1 Rocephin 1gm IV Last Recorded V/S: Last Vital Signs Temp 35.6 C L 01/04/20 13:45 Pulse 103 H 01/04/20 13:45 Resp 17 01/04/20 13:45 BP 156/109 H 01/04/20 13:45 Pulse Ox 93 L 01/04/20 13:45 - Orders/Labs/Meds Orders: Active Orders 24 hr Category Date Time Status Chest 1V Frontal [CR] Stat Exams 01/04/20 13:57 Ordered Ondansetron [Zofran] Med 01/04/20 13:58 Active 4 mg IVPUSH Q4H PRN Sodium Chloride 0.9% [Normal Saline] 1,000 ml Med 01/04/20 14:00 Active IV ASDIRECTED Sodium Chloride 0.9% [Saline Flush] Med 01/04/20 13:57 Active 10 ml FLUSH ASDIRECTED PRN cefTRIAXone [Rocephin] Med 01/04/20 14:00 Active 1 gm IVPUSH Q24H Saline Lock Insert [OM.PC] Routine Oth 01/04/20 13:57 Ordered Medication Orders Ceftriaxone Sodium (Rocephin) 1 gm IVPUSH Q24H KIARA Last Admin: 01/04/20 14:13 Dose: 1 gm Documented by: GENA Sodium Chloride (Normal Saline) 1,000 mls @ 125 mls/hr IV ASDIRECTED KIARA Last Admin: 01/04/20 14:07 Dose: 125 mls/hr Documented by: GENA Ondansetron HCl (Zofran) 4 mg IVPUSH Q4H PRN PRN Reason: Nausea/Vomiting Last Admin: 01/04/20 14:07 Dose: 4 mg Documented by: GENA Sodium Chloride (Saline Flush) 10 ml FLUSH ASDIRECTED PRN PRN Reason: Keep Vein Open Labs: Laboratory Tests 01/04/20 01/04/20 01/04/20 Range/Units 14:15 14:15 14:15 WBC 4.3 L (4.5-12.0) X10-3/uL RBC 3.21 L (3.23-5.20) x10(6)uL Hgb 9.6 L D (11.5-15.5) g/dL Hct 29.3 L D (30.0-51.3) % MCV 91.4 (80-96) fL MCH 29.8 (27.7-33.6) pg MCHC 32.6 (32.2-35.4) g/dL RDW 19.4 H (11.5-15.5) % Plt Count 97 L (125-369) X10(3)uL MPV 8.9 (7.4-10.4) fL Neut % (Auto) 67.5 (46-82) % Lymph % (Auto) 22.3 (13-37) % Carroll % (Auto) 9.4 (4-12) % Eos % (Auto) 0 L (1.0-5.0) % Baso % (Auto) 0 (0-2) % Neut # (Auto) 2.9 (1.6-8.3) # Lymph # (Auto) 1.0 (0.6-5.0) # Carroll # (Auto) 0.4 (0.0-1.3) # Eos # (Auto) 0.0 (0.0-0.8) # Baso # (Auto) 0.0 (0.0-0.2) # Sodium 139 (135-145) mmol/L Potassium 4.0 (3.5-5.3) mmol/L Chloride 101 (100-110) mmol/L Carbon Dioxide 28 (21-32) mmol/L BUN 24 H (7-18) mg/dL Creatinine 1.1 H (0.55-1.02) mg/dL Est Cr Clr Drug Dosing TNP Estimated GFR (MDRD) 52 L (>60) BUN/Creatinine Ratio 21.8 H (9-20) Glucose 137 H (80-116) mg/dL Lactic Acid (0.4-2.0) mmol/L Calcium 8.7 (8.6-10.2) mg/dL Total Bilirubin 0.6 (0.1-1.3) mg/dL AST 24 (5-25) IU/L ALT 24 D (12-36) U/L Alkaline Phosphatase 146 H (56-112) IU/L Troponin I 8.8 (4.0-60.3) pg/mL NT-Pro-B Natriuret Pep 728 H (<=125) pg/mL Total Protein 7.9 (6.0-8.0) g/dL Albumin 2.6 L (3.5-5.2) g/dL Globulin 5.3 g/dL Albumin/Globulin Ratio 0.5 /09/17 Range/Units 14:15 WBC (4.5-12.0) X10-3/uL RBC (3.23-5.20) x10(6)uL Hgb (11.5-15.5) g/dL Hct (30.0-51.3) % MCV (80-96) fL MCH (27.7-33.6) pg MCHC (32.2-35.4) g/dL RDW (11.5-15.5) % Plt Count (125-369) X10(3)uL MPV (7.4-10.4) fL Neut % (Auto) (46-82) % Lymph % (Auto) (13-37) % Carroll % (Auto) (4-12) % Eos % (Auto) (1.0-5.0) % Baso % (Auto) (0-2) % Neut # (Auto) (1.6-8.3) # Lymph # (Auto) (0.6-5.0) # Carroll # (Auto) (0.0-1.3) # Eos # (Auto) (0.0-0.8) # Baso # (Auto) (0.0-0.2) # Sodium (135-145) mmol/L Potassium (3.5-5.3) mmol/L Chloride (100-110) mmol/L Carbon Dioxide (21-32) mmol/L BUN (7-18) mg/dL Creatinine (0.55-1.02) mg/dL Est Cr Clr Drug Dosing Estimated GFR (MDRD) (>60) BUN/Creatinine Ratio (9-20) Glucose (80-116) mg/dL Lactic Acid 1.2 (0.4-2.0) mmol/L Calcium (8.6-10.2) mg/dL Total Bilirubin (0.1-1.3) mg/dL AST (5-25) IU/L ALT (12-36) U/L Alkaline Phosphatase (56-112) IU/L Troponin I (4.0-60.3) pg/mL NT-Pro-B Natriuret Pep (<=125) pg/mL Total Protein (6.0-8.0) g/dL Albumin (3.5-5.2) g/dL Globulin g/dL Albumin/Globulin Ratio Meds: Medications Generic Name Dose Route Start Last Admin Trade Name Freq PRN Reason Stop Dose Admin Ceftriaxone Sodium 1 gm 01/04/20 14:00 01/04/20 14:13 Rocephin IVPUSH 1 gm Q24H KIARA Administration Sodium Chloride 1,000 mls @ 125 mls/hr 01/04/20 14:00 01/04/20 14:07 Normal Saline IV 125 mls/hr ASDIRECTED KIARA Administration Ondansetron HCl 4 mg 01/04/20 13:58 01/04/20 14:07 Zofran IVPUSH 4 mg Q4H PRN Administration Nausea/Vomiting Sodium Chloride 10 ml 01/04/20 13:57 Saline Flush FLUSH ASDIRECTED PRN Keep Vein Open Discontinued Medications Generic Name Dose Route Start Last Admin Trade Name Freq PRN Reason Stop Dose Admin Metoclopramide HCl 10 mg 01/04/20 14:08 Reglan IVPUSH 01/04/20 14:09 ONETIME ONE Departure - Departure Time of Disposition: 16:00 Disposition: Refer to Observation Condition: Good Clinical Impression: Pneumonia, Dehydration, UTI (urinary tract infection) - Discharge Information Sepsis Event Note (ED) - Evaluation Sepsis Screening Result: No Definite Risk - Focused Exam Vital Signs: Vital Signs Temp Pulse Resp BP Pulse Ox 01/04/20 13:45 35.6 C L 103 H 17 156/109 H 93 L - My Orders Last 24 Hours: My Active Orders 01/04/20 13:57 Chest 1V Frontal [CR] Stat Sodium Chloride 0.9% [Saline Flush] 10 ml FLUSH ASDIRECTED PRN Saline Lock Insert [OM.PC] Routine 01/04/20 13:58 Ondansetron [Zofran] 4 mg IVPUSH Q4H PRN 01/04/20 14:00 Sodium Chloride 0.9% [Normal Saline] 1,000 ml IV ASDIRECTED cefTRIAXone [Rocephin] 1 gm IVPUSH Q24H - Assessment/Plan Last 24 Hours: My Active Orders 01/04/20 13:57 Chest 1V Frontal [CR] Stat Sodium Chloride 0.9% [Saline Flush] 10 ml FLUSH ASDIRECTED PRN Saline Lock Insert [OM.PC] Routine 01/04/20 13:58 Ondansetron [Zofran] 4 mg IVPUSH Q4H PRN 01/04/20 14:00 Sodium Chloride 0.9% [Normal Saline] 1,000 ml IV ASDIRECTED cefTRIAXone [Rocephin] 1 gm IVPUSH Q24H
[2020-01-04] MEDS ORDERED: Cyclobenzaprine 10 MG Tab PO PRN (16:01)
[2020-01-04] MEDS ORDERED: Docusate Sodium 100 MG Cap PO PRN (16:01)
[2020-01-04] MEDS ORDERED: Naproxen 500 MG Tab PO PRN (16:01)
[2020-01-04] MEDS ORDERED: Acetaminophen/HYDROcodone 325-5 MG Tab PO PRN (16:01)
[2020-01-04] MEDS ORDERED: predniSONE 10 MG Tab PO PRN (16:01)
[2020-01-04] MEDS: methylPREDNISolone Sodium Succinate 40 MG/1 ML SDV IVPUSH SCH (17:42)
[2020-01-04] MEDS: Piperacillin/Tazobactam 3.375 GM in Sodium Chloride 0.9% 50 ML IV SCH ×2 (17:43→22:36)
[2020-01-04] MEDS: Pantoprazole 40 MG Tab.CR PO SCH (17:44)
[2020-01-04] MEDS: Azithromycin 500 MG in Sodium Chloride 0.9% 250 ML IV SCH (18:39)
[2020-01-04] MEDS ORDERED: Gabapentin 300 MG Cap PO SCH (21:00)
[2020-01-04] MEDS ORDERED: Gabapentin 100 MG Cap PO SCH (21:00)
[2020-01-04] MEDS: Mupirocin Oint 22 GM Tube TOP SCH (22:35)
[2020-01-04] MEDS: Enoxaparin 40 MG/0.4 ML Syringe SUBCUT SCH (22:36)
[2020-01-05] MEDS: Piperacillin/Tazobactam 3.375 GM in Sodium Chloride 0.9% 50 ML IV SCH ×4 (04:18→22:47)
[2020-01-05] MEDS: Sodium Chloride 0.9% 1,000 ML IV SCH (08:57)
[2020-01-05] MEDS ORDERED: FLUoxetine 20 MG Cap PO SCH (09:00)
[2020-01-05] MEDS ORDERED: diphenhydrAMINE 50 MG Cap PO ONE (09:11)
[2020-01-05] MEDS: methylPREDNISolone Sodium Succinate 40 MG/1 ML SDV IVPUSH SCH ×2 (09:16→21:55)
[2020-01-05] MEDS: Pantoprazole 40 MG Tab.CR PO SCH (09:17)
[2020-01-05] MEDS: Mupirocin Oint 22 GM Tube TOP SCH ×3 (09:17→21:56)
[2020-01-05] MEDS ORDERED: Acetaminophen/HYDROcodone 325-10 MG Tab PO PRN (09:52)
[2020-01-05] MEDS ORDERED: Sodium Chloride 0.9% 1,000 ML IV SCH (10:00)
[2020-01-05] MEDS: FLUoxetine 20 MG Cap PO SCH (11:26)
--- NOTE | 2020-01-05 12:49 | PN ---
DATE SEEN: 01/05/2020 SUBJECTIVE: Followup pneumonia. Mary Ann Adams is a 54-year-old female admitted with right-sided pneumonia. Peculiar fluffy pneumonia. May have been aspiration in nature, right-sided. Had a good night. Anxious to go home. Spoke about the implications, concerns, and need for treatment, or lack of response to outpatient therapy and appropriate management, in agreement. LABORATORY STUDIES: White count 4300 to 3600, hemoglobin 9.6 to 8.9, platelets 97,000 to 94,000. BUN and creatinine 1 to 1.1. GFR from 52 to 58. Blood cultures per [place], negative. OBJECTIVE: VITAL SIGNS: 36.7, 99, 130/68, 20, 99%. GENERAL: Appears comfortable. HEENT: Mouth and oropharynx clear. NECK: Benign. Thyroid small. CHEST: Decreased breath sounds throughout all right lung epstein. HEART: No ectopy. Soft murmur. ABDOMEN: Benign. Right-sided pneumonia. PLAN: We will repeat her x-ray, medications on board, change in dose, advancement of regular diet, Benadryl at bedtime, and decreased IV fluids. /[id number] TOMMY/MARNIE
--- NOTE | 2020-01-05 14:20 | HP ---
ADMISSION DATE: 01/04/2020 CHIEF COMPLAINT: Right-sided pneumonia, nausea, vomiting, dehydration. HISTORY OF PRESENT ILLNESS: Mary Ann Adams is a 54-year-old female, resides in [place], was seen at [facility] by Dr. Escobedo. Presents with a complicated health issue. She was last seen here earlier this week. She was found to have pneumonia, markedly low hemoglobin of 5.3, low white count, chemotherapy induced, and pneumonia. She was transferred to [place] for oncological and complementary care. She was there for a day and a half, the room was uninviting, was cool, discharged against medical advice. Discharged home on Augmentin 875 one p.o. b.i.d. Interval from discharge, nausea, vomiting, diarrhea, feeling poorly, dehydration, concern of decreased urine output. Admission to hospital is indicated. Came in because of those concerns. Exam was satisfactory. Hemoglobin had improved. She showed dehydration necessitating hospitalization. MEDICATIONS: Medications on board upon admission include, 1. Bactrim DS one p.o. b.i.d. abdominal wound. 2. Flexeril 10 mg. 3. Zofran 8 mg q.8 hours p.r.n. nausea and vomiting. 4. Naproxen 500 mg 1 p.o. b.i.d. joint pain. 5. Bactrim ointment t.i.d. abdominal wounds. 6. Neurontin 300 mg 1 p.o. t.i.d. neuropathic pain. 7. Gabapentin 200 mg 1 p.o. t.i.d. neuropathic pain. 8. Fluoxetine 60 mg 1 p.o. daily. 9. Docusate 100 mg 1 p.o. p.r.n. constipation. 10.[place] 1 p.o. b.i.d. 5/325. ALLERGIES: Orencia with hives, Celebrex with hives. 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 September 2019, cared for by Dr. Kathi Nichole gynecological oncological surgeon in [place]. Underwent aggressive intervention, hysterectomy, salpingectomy, and appropriate treatment. She has had a remote appendectomy, remote cholecystectomy, previous ankle surgical repair with need for similar issues on the right side. Chronic illnesses include chronic pain syndrome, rheumatoid arthritis. No other operative procedures, hospitalizations, unusual childhood diseases, major injuries, or fractures. GYNECOLOGICAL HISTORY: 3, para 3 female. SOCIAL HISTORY: Lives in [place] with her of 55. Three children, 2 sons, 1 granddaughter, 5 grand kids, one on the way. Continues to smoke infrequently. No alcohol consumption, illicit drug use. Worked at [employer] in [place] for 35 years. REVIEW OF SYSTEMS: CONSTITUTIONAL: Feeling poorly, but doing okay. EYES: Refractive lenses needed. EARS: Hearing intact. Oropharynx: Has her own teeth. CARDIOVASCULAR: No chest pain, palpitations. RESPIRATORY: Please see HPI. GI: Occasional diarrhea, irregular stools. No blood in stools. : Good voiding pattern. Nocturia x1. Bladder control concern. ORTHOPEDIC: General complaints particular with bilateral ankle pain. SKIN: No lesions, eruptions, or moles. ENDOCRINE: No excessive thirst or urination. ALLERGIES: Noted above. PSYCHIATRIC: Mood stable. PHYSICAL EXAMINATION: VITAL SIGNS: Stable, 106 kg, 36.7, 93, 132/88, 20, 96%. GENERAL: Appears comfortable, conversant, in good spirits. HEENT: Funduscopic benign. Conjunctivae clear. Bright tympanic membranes. Clear nasal discharge. Mouth and oropharynx, dry mucous membranes. Dentition fair condition. NECK: Benign. Thyroid is small, no adenopathy. LUNGS: Decreased breath sounds throughout all entire right side of her lung. Left lung clear. HEART: No ectopy. Soft murmur. BREASTS: Symmetric. Parous without masses, nipple changes, skin changes, or lymphadenopathy. ABDOMEN: Well-healed surgical scar, midline. Multiple eschar, weeping lesions, particularly umbilicus, previous port sites. AND RECTAL: Declined. EXTREMITIES: Well perfused. NEUROMUSCULAR: Intact. LABORATORY STUDIES: Hemoglobin 9.6, white count 4300, platelets 97,000. Electrolytes satisfactory. BUN 24, creatinine 1.1, random glucose 37, GFR 52. X-ray revealed significant pneumonia, right side. ASSESSMENT: Right-sided pneumonia. PLAN: Lack of response to oral treatment. We will go with IV Zosyn and IV azithromycin, low-dose steroids, complementary care and well being. /[id number] /MARNIE
[2020-01-05] MEDS ORDERED: diphenhydrAMINE 50 MG Cap PO PRN (17:28)
[2020-01-05] MEDS: Azithromycin 500 MG in Sodium Chloride 0.9% 250 ML IV SCH (18:41)
[2020-01-05] MEDS: Enoxaparin 40 MG/0.4 ML Syringe SUBCUT SCH (21:55)
[2020-01-06] MEDS: Piperacillin/Tazobactam 3.375 GM in Sodium Chloride 0.9% 50 ML IV SCH ×2 (05:00→10:35)
[2020-01-06] MEDS: Mupirocin Oint 22 GM Tube TOP SCH (07:59)
[2020-01-06] MEDS: FLUoxetine 20 MG Cap PO SCH (08:08)
[2020-01-06] MEDS: methylPREDNISolone Sodium Succinate 40 MG/1 ML SDV IVPUSH SCH (08:09)
[2020-01-06] MEDS: Pantoprazole 40 MG Tab.CR PO SCH (08:10)
--- NOTE | 2020-01-06 13:01 | DISCH ---
DISCHARGE DATE: 01/06/2020 CHIEF COMPLAINT: Right-sided pneumonia with fever. HISTORY OF PRESENT ILLNESS: Mary Ann Adams is a 54-year-old female admitted to [facility]. She had been hospitalized at [facility] with acute care respiratory infection. She was there for a day and half, went AMA due to the lack of what she felt was the appropriate care and healing physical environment. Way too cold. Discharged home on Augmentin. Nausea, vomiting, dehydration, and increasing disability, necessitated rehospitalization. Please see history and physical. SURGICAL PROCEDURES: None. CONSULTATION: None. PHYSICAL EXAMINATION: Exam on admission, appeared to be dry. Examination findings were noted, a great concern was right-sided decreased breath sounds and rales, right lung field. Distant heart sounds, and healing laparoscopic surgical eschar lesions in the abdomen. Otherwise, stable exam. LABORATORY STUDIES: White count 4300, hemoglobin 9.6, stable, 29.3, platelets 97,000, all thought to be related to chemotherapy. Electrolytes were satisfactory though creatinine was higher at 1.4, BUN 24, troponin which had been elevated decreased to 728, troponin was negative. HOSPITAL COURSE: The patient admitted to the hospital for treatment. Placed on IV antibiotics, multiple antibiotic therapy, aggressive fluids and hydration. Clinical response was satisfactory. Fever never reappeared. Respiratory distress resolved. Repeat x-ray on 01/05/2020, revealed moderate improvement. anxious to be discharged home. DISCHARGE MEDICATIONS: Please see med recon list. PLAN: We will switch for Augmentin 875 one p.o. b.i.d., unable to tolerate pills, Augmentin 600 per teaspoon 1 teaspoon p.o. b.i.d. 10 days' duration. We will discontinue the Bactrim DS. May resume after completion of this antibiotic, followup appointment Dr. Nicholson in 2 weeks' time. /[id number] TOMMY/MARNIE
--- NOTE | 2020-01-07 10:29 | CR ---
INDICATION: Followup pneumonia. CHEST, ONE VIEW: An AP upright view of the chest was obtained 01/04/20 and compared with 01/02/20 revealing a marked decrease in infiltration in the right lung. Little change is noted on the left. Findings may be on the basis of resolving pneumonia or possibly unusual pulmonary edema. This should be correlated clinically. The heart did not appear grossly enlarged at this time. A nodular density is again noted in the upper middle lung field on the right compatible with a heavily calcified granuloma seen on CT of the chest from 01/02/20. It was also unchanged from 07/12/19 CT chest. No new acute process was seen. Exogenous obesity is again noted. IMPRESSION: 1. Markedly decreased infiltration on the right which may be on the basis of resolving pneumonia or pulmonary edema, question aspiration pneumonia as previously suggested. 2. Exogenous obesity. 3. Continued followup recommended as there does appear to be some residual infiltration especially at the right lung base. MTDD
--- NOTE | 2020-01-07 10:34 | CR ---
INDICATION: Followup pneumonia. CHEST, TWO VIEWS: PA and lateral views of the chest were obtained 01/05/20 and compared with 01/04/20, 01/02/20. The heart shows evidence of left ventricular enlargement. No definite CHF is seen. Calcified granuloma again noted in the upper middle lung field on the right. Residual infiltrate appears to be further decreased on the right in the lower lung field but still present. Continued followup recommended. Evidence of exogenous obesity is again noted. Slightly flattened diaphragm leads with mild hyperaeration raises question of obstructive airway disease. This should be correlated clinically. IMPRESSION: 1. No new acute process. 2. Continued residual infiltrate at the right lower lung field. Further followup recommended. 3. ASHD with LVE. 4. Exogenous obesity. 5. Question obstructive airway disease. MTDD
== END 2020-01-06 11:25 | disposition home or self-care (01) | DRG 139 ==
LOC: FB.ED 13:39 → FB.MS 15:43 → OBSVTOIN 16:51
PROVIDERS: ADMIT Emergency Medicine; ATTEND Family Medicine
DX: J18.9 Pneumonia, unspecified organism (principal); E86.0 Dehydration; K59.00 Constipation, unspecified; C54.1 Malignant neoplasm of endometrium; G89.4 Chronic pain syndrome; M06.9 Rheumatoid arthritis, unspecified; H54.7 Unspecified visual loss; K21.9 Gastro-esophageal reflux disease without esophagitis; G43.909 Migraine, unspecified, not intractable, without status migrainosus; F41.9 Anxiety disorder, unspecified; F32.9 Major depressive disorder, single episode, unspecified; E66.9 Obesity, unspecified; D64.9 Anemia, unspecified; Z96.662 Presence of left artificial ankle joint; Z68.41 Body mass index [BMI] 40.0-44.9, adult; Z79.899 Other long term (current) drug therapy; Z88.1 Allergy status to other antibiotic agents; Z88.8 Allergy status to other drugs, medicaments and biological substances; Z90.710 Acquired absence of both cervix and uterus; Z90.49 Acquired absence of other specified parts of digestive tract; Z79.52 Long term (current) use of systemic steroids
CPT/HCPCS: 36415; 71045; 71046; 80048; 80053; 83605; 83880; 84484; 85025; 85027; 96361; 96374; 99285-25; A9270-GY; J0456; J0696; J1650; J2405; J2543; J2920; J7030; J7050

== ENCOUNTER 2023-01-21 08:56 | Emergency (ER) | payer BC ==
[2023-01-21] MEDS ORDERED: hydrOXYzine HCl 50 MG/ML SDV IM ONE (09:30)
[2023-01-21] MEDS ORDERED: Sodium Chloride 0.9% 1,000 ML IV SCH (09:30)
[2023-01-21] MEDS ORDERED: Pantoprazole 40 MG Vial IVPUSH ONE (09:31)
[2023-01-21 09:50] LABS: BASOPHILS ABSOLUTE AUTO 0.1 x10-3/uL (0.0-0.1); BASOPHILS PERCENT AUTO 0.8 % (0.2-1.5); EOSINOPHILS ABSOLUTE AUTO 0.1 x10-3/uL (0.0-0.8); EOSINOPHILS PERCENT AUTO 0.9 % (0.6-8.1); HEMATOCRIT 31.5 % (34.2-48.2); HEMOGLOBIN 10.7 g/dL (11.4-15.5); LYMPHOCYTES ABSOLUTE AUTO 0.9 x10-3/uL (1.0-4.4); LYMPHOCYTES PERCENT AUTO 12.1 % (18.4-52.1); MEAN CORPUSCULAR HEMOGLOBIN 35.5 pg (23.9-33.9); MEAN CORPUSCULAR HGB CONC 33.9 g/dL (31.9-34.8); MEAN CORPUSCULAR VOLUME 104.6 fL (76.7-100.5); MEAN PLATELET VOLUME 10.4 fL (7.1-12.4); MONOCYTES ABSOLUTE AUTO 0.5 x10-3/uL (0.3-1.0); MONOCYTES PERCENT AUTO 6.9 % (4.4-15.7); NEUTROPHILS ABSOLUTE AUTO 5.9 x10-3/uL (1.5-6.3); NEUTROPHILS PERCENT AUTO 79.3 % (30.8-76.2); PLATELET COUNT,PLT 131 x10(3)uL (151-488); RED BLOOD CELL COUNT 3.02 x10(6)uL (3.60-5.20); RED CELL DISTRIBUTION WIDTH 14.1 % (12.3-16.5); WHITE BLOOD CELL COUNT,WBC 7.5 x10-3/uL (3.0-10.3)
[2023-01-21 09:54] LABS: BLOOD UREA NITROGEN,BUN 19 mg/dL (7-18); BUN/CREATININE RATIO 10.6 (9-20); CALCIUM 9.4 mg/dL (8.6-10.2); CARBON DIOXIDE,CO2 25 mmol/L (21-32); CHLORIDE,CL 100 mmol/L (100-110); CREATININE 1.8 mg/dL (0.55-1.02); EST CRCL DRUG DOSING (CG) 28.87 mL/min; ESTIMATED GFR 33 mL/min (>60); GLUCOSE RANDOM 96 mg/dL (80-116); POTASSIUM,K 3.5 mmol/L (3.5-5.3); SODIUM,NA 138 mmol/L (135-145)
[2023-01-21 09:59] LABS: A/G RATIO 0.7; ALANINE AMINOTRANSFERASE,ALT 14 U/L (12-36); ALBUMIN 2.9 g/dL (3.5-5.2); ALKALINE PHOSPHATASE 167 IU/L (56-112); ASPARTATE AMNIOTRANSFERASE,AST 11 IU/L (5-25); BILIRUBIN TOTAL 0.5 mg/dL (0.1-1.3)
[2023-01-21] MEDS ORDERED: Sodium Chloride 0.9% 10 ML Syringe FLUSH PRN (12:00)
== END 2023-01-21 12:15 | disposition home or self-care (01) ==
LOC: FB.ED 08:56
DX: K21.9 Gastro-esophageal reflux disease without esophagitis (principal); E86.0 Dehydration; C22.8 Malignant neoplasm of liver, primary, unspecified as to type; F17.210 Nicotine dependence, cigarettes, uncomplicated; E66.9 Obesity, unspecified; Z79.899 Other long term (current) drug therapy; Z88.8 Allergy status to other drugs, medicaments and biological substances; Z68.35 Body mass index [BMI] 35.0-35.9, adult
CPT/HCPCS: 36415; 80053; 83735; 85025; 96361; 96372; 96374; 96375; 99284-25; C9113; J1642; J3410; J3490; J7030

== ENCOUNTER 2023-02-15 08:41 | Emergency (ER) | payer BC ==
[2023-02-15] MEDS ORDERED: Sodium Chloride 0.9% 1,000 ML IV ONE ×3 (09:01→12:19)
[2023-02-15] MEDS ORDERED: Ondansetron 4 MG/2 ML SDV IVPUSH ONE (09:01)
[2023-02-15] MEDS ORDERED: Sodium Chloride 0.9% 10 ML Syringe FLUSH PRN (09:05)
[2023-02-15 09:36] LABS: HEMATOCRIT 36.8 % (34.2-48.2); HEMOGLOBIN 12.2 g/dL (11.4-15.5); MEAN CORPUSCULAR HEMOGLOBIN 32.9 pg (23.9-33.9); MEAN CORPUSCULAR HGB CONC 33.2 g/dL (31.9-34.8); MEAN PLATELET VOLUME 11.1 fL (7.1-12.4); PLATELET COUNT,PLT 208 x10(3)uL (151-488); RED BLOOD CELL COUNT 3.72 x10(6)uL (3.60-5.20); RED CELL DISTRIBUTION WIDTH 13.7 % (12.3-16.5)
[2023-02-15 09:41] LABS: A/G RATIO 0.7; ALANINE AMINOTRANSFERASE,ALT 13 U/L (12-36); ALBUMIN 3.1 g/dL (3.5-5.2); ALKALINE PHOSPHATASE 202 IU/L (56-112); ASPARTATE AMNIOTRANSFERASE,AST 11 IU/L (5-25); BILIRUBIN TOTAL 1.1 mg/dL (0.1-1.3); BLOOD UREA NITROGEN,BUN 27 mg/dL (7-18); CALCIUM 9.2 mg/dL (8.6-10.2); CARBON DIOXIDE,CO2 18 mmol/L (21-32); CHLORIDE,CL 90 mmol/L (100-110); CREATININE 1.8 mg/dL (0.55-1.02); EST CRCL DRUG DOSING (CG) 28.52 mL/min; ESTIMATED GFR 32 mL/min (>60); GLUCOSE RANDOM 177 mg/dL (80-116); PROTEIN TOTAL,TP 7.9 g/dL (6.0-8.0); SODIUM,NA 135 mmol/L (135-145)
[2023-02-15 09:43] LABS: TROPONIN I 13.7 pg/mL (4.0-60.3)
[2023-02-15 09:49] LABS: C-REACTIVE PROTEIN 10.05 mg/dL (<0.33); POTASSIUM,K 2.4 mmol/L (3.5-5.3)
[2023-02-15] MEDS ORDERED: Potassium Chloride 20 MEQ Tab.ER PO ONE ×2 (09:53→13:33)
[2023-02-15] MEDS ORDERED: Metoclopramide 10 MG/2 ML SDV IVPUSH ONE (09:53)
[2023-02-15 09:57] LABS: LYMPHOCYTES PERCENT MAN 13 % (13-37); MONOCYTES PERCENT MAN 3 % (4-12); SEG NEUTROPHILS PERCENT MAN 84 % (46-82)
[2023-02-15] MEDS ORDERED: Magnesium Sulfate/Water 50 ML IV ONE (10:15)
[2023-02-15 13:39] LABS: BILIRUBIN,URINE SMALL (NEGATIVE); GLUCOSE,URINE NORMAL (NORMAL); KETONES,URINE 15 mg/dL (NEGATIVE); LEUKOCYTE ESTERASE,URINE NEGATIVE (NEGATIVE); NITRITE,URINE NEGATIVE (NEGATIVE); OCCULT BLOOD,URINE NEGATIVE (NEGATIVE); PROTEIN,URINE NEGATIVE (NEGATIVE); UROBILINOGEN,URINE 4 mg/dL (NEGATIVE)
[2023-02-15 13:50] LABS: APPEARANCE,URINE CLOUDY (CLEAR); COLOR,URINE YELLOW (YELLOW); SQUAMOUS EPITHELIAL CELLS,UR MODERATE (NS,R,O)
[2023-02-15 13:51] LABS: BACTERIA,URINE MANY (NS)
[2023-02-16 18:49] LABS: PROCALCITONIN 0.23 ng/mL (0.00-0.07)
[2023-02-17 04:19] LABS: GAMMA GLUTAMYL TRANSFERASE 55 U/L (5-36)
[2023-02-18 02:14] LABS: ALK-PHOSPHATASE BONE CALC 72 U/L (0-55); ALK-PHOSPHATASE LIVER CALC 88 U/L (0-94); ALK-PHOSPHATASE OTHER CALC 0 U/L; ALKALINE PHOSPHATASE 160 U/L (40-120)
== END 2023-02-15 14:25 | disposition home or self-care (01) ==
LOC: FB.ED 08:41
DX: E86.0 Dehydration (principal); N17.9 Acute kidney failure, unspecified; R73.9 Hyperglycemia, unspecified; E87.8 Other disorders of electrolyte and fluid balance, not elsewhere classified; D72.829 Elevated white blood cell count, unspecified; E83.42 Hypomagnesemia; E87.6 Hypokalemia; R77.0 Abnormality of albumin; R74.8 Abnormal levels of other serum enzymes; K21.9 Gastro-esophageal reflux disease without esophagitis; I50.9 Heart failure, unspecified; Z79.899 Other long term (current) drug therapy; Z88.8 Allergy status to other drugs, medicaments and biological substances; E66.9 Obesity, unspecified; Z68.35 Body mass index [BMI] 35.0-35.9, adult
CPT/HCPCS: 36415; 80053; 81001; 82977; 83615; 83690; 83735; 84075; 84080; 84145; 84484; 85025; 86140; 87086; 87088; 87186; 96361; 96365; 96366; 96375; 99284; A9270; J1642; J2405; J2765; J3475; J3490; J7030

== ENCOUNTER 2023-03-02 09:24 | Emergency (ER) | payer BC ==
[2023-03-02] MEDS ORDERED: Sodium Chloride 0.9% 1,000 ML IV ONE ×2 (09:40)
[2023-03-02 10:02] LABS: BASOPHILS PERCENT AUTO 0.3 % (0.2-1.5); EOSINOPHILS ABSOLUTE AUTO 0.1 x10-3/uL (0.0-0.8); EOSINOPHILS PERCENT AUTO 0.7 % (0.6-8.1); HEMATOCRIT 34.3 % (34.2-48.2); HEMOGLOBIN 11.4 g/dL (11.4-15.5); LYMPHOCYTES PERCENT AUTO 26.3 % (18.4-52.1); MEAN CORPUSCULAR HEMOGLOBIN 31.6 pg (23.9-33.9); MEAN CORPUSCULAR HGB CONC 33.2 g/dL (31.9-34.8); MEAN CORPUSCULAR VOLUME 95.1 fL (76.7-100.5); MEAN PLATELET VOLUME 10.6 fL (7.1-12.4); MONOCYTES ABSOLUTE AUTO 0.4 x10-3/uL (0.3-1.0); MONOCYTES PERCENT AUTO 5.1 % (4.4-15.7); NEUTROPHILS ABSOLUTE AUTO 5.2 x10-3/uL (1.5-6.3); NEUTROPHILS PERCENT AUTO 67.6 % (30.8-76.2); PLATELET COUNT,PLT 93 x10(3)uL (151-488); RED BLOOD CELL COUNT 3.61 x10(6)uL (3.60-5.20); RED CELL DISTRIBUTION WIDTH 13.7 % (12.3-16.5); WHITE BLOOD CELL COUNT,WBC 7.7 x10-3/uL (3.0-10.3)
[2023-03-02 10:13] LABS: A/G RATIO 0.8; ALANINE AMINOTRANSFERASE,ALT 17 U/L (12-36); ALBUMIN 3.1 g/dL (3.5-5.2); ALKALINE PHOSPHATASE 167 IU/L (56-112); ASPARTATE AMNIOTRANSFERASE,AST 13 IU/L (5-25); BILIRUBIN TOTAL 0.5 mg/dL (0.1-1.3); BLOOD UREA NITROGEN,BUN 29 mg/dL (7-18); BUN/CREATININE RATIO 19.3 (9-20); CALCIUM 9.3 mg/dL (8.6-10.2); CARBON DIOXIDE,CO2 26 mmol/L (21-32); CHLORIDE,CL 96 mmol/L (100-110); CREATININE 1.5 mg/dL (0.55-1.02); ESTIMATED GFR 40 mL/min (>60); GLUCOSE RANDOM 102 mg/dL (80-116); POTASSIUM,K 2.9 mmol/L (3.5-5.3); PROTEIN TOTAL,TP 7.2 g/dL (6.0-8.0); SODIUM,NA 135 mmol/L (135-145)
[2023-03-02] MEDS ORDERED: WATER IV ONE ×2 (10:36)
[2023-03-02] MEDS ORDERED: Potassium Chloride 20 MEQ Tab.ER PO ONE (10:36)
[2023-03-02] MEDS ORDERED: DEXTROSE 5% IV ONE ×2 (10:36)
[2023-03-02] MEDS ORDERED: MAGNESIUM SULFATE IV ONE ×2 (10:36)
[2023-03-02] MEDS ORDERED: Magnesium Sulfate/Water 50 ML IV ONE (10:45)
[2023-03-02] MEDS ORDERED: Heparin Sodium 10 Units/ML 5 ML Syringe FLUSH STA (13:33)
== END 2023-03-02 14:10 | disposition home or self-care (01) ==
LOC: FB.ED 09:24
DX: E86.0 Dehydration (principal); E87.6 Hypokalemia; E83.42 Hypomagnesemia; E88.09 Other disorders of plasma-protein metabolism, not elsewhere classified; K21.9 Gastro-esophageal reflux disease without esophagitis; F17.210 Nicotine dependence, cigarettes, uncomplicated; E66.9 Obesity, unspecified; Z90.49 Acquired absence of other specified parts of digestive tract; Z90.710 Acquired absence of both cervix and uterus; Z79.899 Other long term (current) drug therapy; Z91.048 Other nonmedicinal substance allergy status
CPT/HCPCS: 36415; 80053; 83605; 83735; 85025; 86140; 96361; 96365; 96366; 99284-25; A9270-GY; J1642; J3475; J7030

== ENCOUNTER 2023-03-05 15:06 | Emergency (ER) | payer BC ==
[2023-03-05] MEDS ORDERED: Ondansetron 4 MG/2 ML SDV IVPUSH ONE (15:57)
[2023-03-05] MEDS ORDERED: Sodium Chloride 0.9% 1,000 ML IV SCH ×2 (16:00→17:00)
[2023-03-05 16:20] LABS: BLOOD UREA NITROGEN,BUN 30 mg/dL (7-18); BUN/CREATININE RATIO 23.1 (9-20); CARBON DIOXIDE,CO2 25 mmol/L (21-32); CHLORIDE,CL 101 mmol/L (100-110); CREATININE 1.3 mg/dL (0.55-1.02); ESTIMATED GFR 48 mL/min (>60); GLUCOSE RANDOM 90 mg/dL (80-116); SODIUM,NA 137 mmol/L (135-145)
[2023-03-05 16:24] LABS: BASOPHILS ABSOLUTE AUTO 0.1 x10-3/uL (0.0-0.1); BASOPHILS PERCENT AUTO 1.2 % (0.2-1.5); EOSINOPHILS PERCENT AUTO 0.5 % (0.6-8.1); HEMOGLOBIN 9.7 g/dL (11.4-15.5); LYMPHOCYTES ABSOLUTE AUTO 1.6 x10-3/uL (1.0-4.4); LYMPHOCYTES PERCENT AUTO 32.8 % (18.4-52.1); MEAN CORPUSCULAR HEMOGLOBIN 31.7 pg (23.9-33.9); MEAN CORPUSCULAR HGB CONC 33.6 g/dL (31.9-34.8); MEAN CORPUSCULAR VOLUME 94.6 fL (76.7-100.5); MONOCYTES ABSOLUTE AUTO 0.5 x10-3/uL (0.3-1.0); NEUTROPHILS ABSOLUTE AUTO 2.7 x10-3/uL (1.5-6.3); NEUTROPHILS PERCENT AUTO 54.5 % (30.8-76.2); PLATELET COUNT,PLT 66 x10(3)uL (151-488); RED BLOOD CELL COUNT 3.07 x10(6)uL (3.60-5.20); RED CELL DISTRIBUTION WIDTH 14.5 % (12.3-16.5)
[2023-03-05 16:26] LABS: A/G RATIO 0.7; ALANINE AMINOTRANSFERASE,ALT 12 U/L (12-36); ALBUMIN 2.6 g/dL (3.5-5.2); ALKALINE PHOSPHATASE 149 IU/L (56-112); ASPARTATE AMNIOTRANSFERASE,AST 13 IU/L (5-25); BILIRUBIN TOTAL 0.6 mg/dL (0.1-1.3); PROTEIN TOTAL,TP 6.2 g/dL (6.0-8.0)
[2023-03-05 16:34] LABS: MAGNESIUM 1.1 mg/dL (1.8-2.5)
[2023-03-05] MEDS: Magnesium Sulfate/Water 2 GM in Premix Bag 1 BAG IV ONE ×2 (17:32→17:47)
[2023-03-05 21:56] LABS: BILIRUBIN,URINE NEGATIVE (NEGATIVE); GLUCOSE,URINE NORMAL (NORMAL); KETONES,URINE NEGATIVE (NEGATIVE); LEUKOCYTE ESTERASE,URINE NEGATIVE (NEGATIVE); NITRITE,URINE NEGATIVE (NEGATIVE); OCCULT BLOOD,URINE NEGATIVE (NEGATIVE); PROTEIN,URINE NEGATIVE (NEGATIVE); UROBILINOGEN,URINE NORMAL (NEGATIVE)
[2023-03-05 22:00] LABS: APPEARANCE,URINE SLIGHTLY CLOUDY (CLEAR); BACTERIA,URINE FEW (NS); COLOR,URINE YELLOW (YELLOW); RBC,URINE 0-5 (0-5); SQUAMOUS EPITHELIAL CELLS,UR FEW (NS,R,O); WBC,URINE 0-5 (0-5)
[2023-03-05 23:06] VITALS: BP 133/91; PULSE 96
== END 2023-03-05 22:29 | disposition home or self-care (01) ==
LOC: FB.ED 15:06
DX: E83.42 Hypomagnesemia (principal); E87.6 Hypokalemia; D64.9 Anemia, unspecified; C22.9 Malignant neoplasm of liver, not specified as primary or secondary; K21.9 Gastro-esophageal reflux disease without esophagitis; F17.210 Nicotine dependence, cigarettes, uncomplicated; E66.9 Obesity, unspecified; Z68.36 Body mass index [BMI] 36.0-36.9, adult; Z79.899 Other long term (current) drug therapy; Z88.8 Allergy status to other drugs, medicaments and biological substances; Z90.49 Acquired absence of other specified parts of digestive tract; Z90.710 Acquired absence of both cervix and uterus
CPT/HCPCS: 36415; 80053; 81001; 83605; 83735; 85025; 86140; 93005; 93010; 96361; 96365; 96366; 96375; 99284; 99285; J2405; J3475; J7030